=== PATIENT | female | born 1940 | race Caucasian/White ===

== ENCOUNTER 2019-05-15 12:02 | Emergency (ER) | payer OTHER, SELFPAY ==
[2019-05-15 12:10] VITALS: BP 150/78; PULSE 82; RESP 20; TEMP 36.1; O2SAT 100; BMI 23.2
[2019-05-15 12:55] LABS: Add Manual Diff / Slide Review NO; Basophils Absolute Auto 0 /uL (0-100); Basophils Percent Auto 0.7 % (0-2); Eosinophils Absolute Auto 100 /uL (0-450); Eosinophils Percent Auto 1.7 % (2-4); Hematocrit 47.2 % (36-46); Hemoglobin 16.4 g/dL (12.0-16.0); Lymphocytes Absolute Auto 1200 /uL (1100-4500); Lymphocytes Percent Auto 17.8 % (25-40); Mean Corpuscular HGB Conc 34.8 % (30-36); Mean Corpuscular Hemoglobin 33.9 PG (26-34); Mean Corpuscular Volume 97.3 fL (80-100); Monocytes Absolute Auto 600 /uL (0-900); Monocytes Percent Auto 8.1 % (3-14); Neutrophils Absolute Auto 5000 /uL (1500-7000); Neutrophils Percent Auto 71.7 % (50-75); Platelet Count 197 X10^3/uL (150-400); Red Blood Cell Count 4.85 X10^6/uL (4.0-5.2); Red Cell Distribution Width 13.4 % (11.6-14.8)
[2019-05-15 13:00] VITALS: BP 153/89; PULSE 79; RESP 19; O2SAT 99
[2019-05-15 13:03] LABS: Prothrombin Time 11.1 SECONDS (10.1-12.7)
[2019-05-15] MEDS: ONDANSETRON 4 MG/2 ML INJ IV (13:04)
[2019-05-15 13:06] LABS: PTT Partial Thromboplastin Tim 29 SECONDS (26.4-36.2)
[2019-05-15 13:07] LABS: Alanine Aminotransferase 15 IU/L (<35); Albumin 4.4 g/dL (3.5-5.0); Albumin Globulin Ratio 1.5 (1.0-2.8); Alkaline Phosphatase 45 U/L (38-126); Aspartate Aminotransferase 27 IU/L (14-36); Bilirubin Total 1.9 mg/dL (0.2-1.3); Blood Urea Nitrogen 20 mg/dL (7-17); Calcium 9.5 mg/dL (8.4-10.2); Carbon Dioxide 22 mmol/L (22-32); Chloride 103 mmol/L (98-107); Estimated Glomerular Filt Rate > 60.0 mL/min (>60); Glucose 114 mg/dL (80-110); HEMOLYSIS 30 (0-50); Lipase 132 U/L (23-300); Sodium 136 mmol/L (137-145); Total Protein 7.4 g/dL (6.3-8.2)
--- NOTE | 2019-05-15 13:49 | DI.RAD.S_ITS ---
PROCEDURE: XR ACUTE ABDOMEN SERIES INDICATIONS: LLQ pain TECHNIQUE: One view chest and two views of the abdomen were acquired. COMPARISON: None. FINDINGS: Surgical changes and devices: Right upper quadrant cholecystectomy clips Chest: Lungs are clear. Heart size is normal. No pleural effusions. No pneumoperitoneum. Abdomen: Bowel gas pattern is normal. No suspicious calcifications. Visualized solid organ contours appear normal. Bones: No suspicious bony lesions. IMPRESSION: Bowel gas pattern is nonspecific. Several small bowel loops are slightly prominent at the right mid abdomen. No free air found. A source of left lower quadrant pain is not seen. Dictated by: Marco Anderson M.D. on 05/15/2019 at 14:26 Approved by: Marco Anderson M.D. on 05/15/2019 at 14:27
[2019-05-15] MEDS: POTASSIUM CHLORIDE 20 MEQ TAB 40 MEQ PO (13:52)
[2019-05-15 13:55] LABS: Bacteria Urine None Seen; RBC Urine None Seen (0-5/HPF)
[2019-05-15 14:05] LABS: Culture Indicated Urine Cult Not Indicated; Mucus Urine 2+ (Negative); Squamous Epithelial Cell Urine 5-10 /HPF (0-5/HPF); WBC Urine 5-10/HPF (0-5/HPF)
--- NOTE | 2019-05-15 14:16 | ED_ITS ---
HPI - Abdominal Pain <IMELDA Lai - Last Filed: 05/15/19 14:59> General Chief Complaint: Abdominal Pain Stated Complaint: lower abdominal pains Time Seen by Provider: 05/15/19 13:23 Source: patient Mode of arrival: Family Vehicle Limitations: no limitations History of Present Illness HPI narrative: This is a 78-year-old female, prior smoker, who presents to ED with significant other with chief complain of resolved left lower quadrant pain for 7 days after she had taken antibiotic medication for cold symptoms about 2 weeks ago. Patient states she lives in [facility] and had visited [facility] with elevated blood pressure. Patient states her abdominal pain im proved after she was provided with warm pack which she had used unaffected side. Patient was discharged to home with MiraLax, metoprolol or and baby aspirin during this visit which she has not started the medication. 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 Patient reports she is belching, passing gas, had a small bowel movement this morning. Patient was away from a last few days and has not been on her routine schedule with eating and bowel movement. Patient was nauseated but this has been resolved as well after the Zofran given in ED. patient denies fever, chills, diarrhea, urinary symptoms. Related Data Home Medications Medication Instructions Recorded Confirmed aspirin 81 mg PO DAILY 05/15/19 05/15/19 dorzolamide 1 drp OPHTHALMIC (EYE) DIRECTED 05/15/19 05/15/19 fluticasone propionate 1 spray INTRANASAL DIRECTED 05/15/19 05/15/19 ipratropium bromide 1 spray INTRANASAL DIRECTED 05/15/19 05/15/19 latanoprost (PF) 1 drp OPHTHALMIC (EYE) BEDTIME 05/15/19 05/15/19 losartan 25 mg PO DAILY 05/15/19 05/15/19 magnesium 500 mg PO QPM 05/15/19 05/15/19 metoprolol tartrate 25 mg PO BID 05/15/19 05/15/19 mometasone 2 spray INTRANASAL DAILY PRN 05/15/19 05/15/19 omega 8-hns-ews-fish oil 1 cap PO BID 05/15/19 05/15/19 polyethylene glycol 3350 17 g PO DAILY 05/15/19 05/15/19 prasterone (dhea) 25 mg PO DAILY 05/15/19 05/15/19 progesterone micronized 0 % VAGINAL DIRECTED 05/15/19 05/15/19 testosterone propionate 1 applic TOPICAL DIRECTED 05/15/19 05/15/19 Previous Rx's Medication Instructions Recorded ondansetron 4 mg PO Q6-8H PRN #7 tab 05/15/19 Allergies Allergy/AdvReac Type Severity Reaction Status Date / Time doxycycline Allergy Unknown Verified 05/15/19 12:18 meperidine Allergy Unknown Verified 05/15/19 12:18 Review of Systems <IMELDA Lai - Last Filed: 05/15/19 14:59> Review of Systems Narrative: General: Denies fever, chills, fatigue, malaise, sweats. HEENT: Denies sinus pain, ear pain, sore throat, difficulty swallowing, dizziness. Respiratory: Denies dyspnea, cough, wheezing, hemoptysis, sputum. Cardiovascular: Denies chest pain, palpitations, orthopnea, edema. Gastrointestinal: See HPI : Denies dysuria, frequency, incontinence, hematuria, urinary retention. Musculoskeletal: Denies weakness, joint pain or bony pain. Skin: Denies rash, skin lesions, or other. Neurologic: Denies weakness, headache, numbness, change in speech, confusion, seizures, incoordination. Psychiatric: No concerning psychosocial issues. 12-point review of systems is negative except for those stated above. Patient History <IMELDA Lai - Last Filed: 05/15/19 14:59> Surgical History History of appendectomy (Acute) History of bowel resection (Acute) Social History Smoking Status: Former smoker Smoking Status: Former smoker alcohol intake frequency: 0-2 drinks per day Alcohol type: wine Substance Use Type: does not use Exam <IMELDA Lai - Last Filed: 05/15/19 14:59> Narrative Exam Narrative: GEN: Alert, oriented x 3, well appearing and nourished, and in no acute distress. Head: Normal cephalic, atraumatic. No scalp or temporal tenderness, palpable mass or rash. EYES: Pupils are equal, round, and reactive to light and accommodation. Extraocular muscles are intact bilaterally. There is no subconjunctival hemorrhage, exudate and sclera non-icteric. ENT: Bilateral auditory canals and tympanic membranes clear. Hearing grossly intact. Nose without bleeding, purulent discharge or deviation. Facial sinuses nontender to palpate. Mucous membrane moist, no mucosal lesion. Throat without erythema, tonsillar hypertrophy or exudate. Uvula in midline, airway patent. Neck: Trachea in midline. No JVD, non-tender without lymphadenopathy. No masses or thyroid megaly. Supple, non-tender and no meningeal signs. CARDIAC: Normal regular rate and rhythm without murmurs, gallops, or rubs. No chest wall tenderness. No peripheral edema, cyanosis or pallor. Capillary refill is less than 2 seconds. RESPIRATORY: Lungs are clear to auscultate bilaterally. No cough, wheezes, rales, or rhonchi. No stridor, respiratory distress, increase work of breathing, or accessary muscle used. ABD: Abdomen soft, mild tenderness on left lower quadrant and non-distended. No guarding or rebound tenderness to palpate. Bowel sounds are normal in all 4 quadrants. There is no palpable masses or organomegaly. EXT: Full painless ROM of all extremities with no loss of sensation, strength, effusion or edema. SKIN: Warm, dry, normal color for patient. No erythema, lesions or rash over visible areas. BACK: Nontender without deformity or crepitance. No flank tenderness. NEUROLOGICAL: Alert and oriented to place, time and person. Sensation and motor function intact bilaterally. No facial droops, dysphasia. PSYCHIATRIC: Good judgement and reason, without hallucinations, abnormal affect or abnormal behaviors during the examination. Patient is not suicidal. Initial Vital Signs Initial Vital Signs: Vital Signs Temperature 96.9 F L 05/15/19 12:10 Pulse Rate 82 05/15/19 12:10 Respiratory Rate 20 05/15/19 12:10 Blood Pressure 150/78 H 05/15/19 12:10 Pulse Oximetry 100 05/15/19 12:10 <Nicole Jhaveri, DO - Last Filed: 05/16/19 07:15> Initial Vital Signs Initial Vital Signs: Vital Signs Temperature 96.9 F L 05/15/19 12:10 Pulse Rate 82 05/15/19 12:10 Respiratory Rate 20 05/15/19 12:10 Blood Pressure 150/78 H 05/15/19 12:10 Pulse Oximetry 100 05/15/19 12:10 Course <IMELDA Lai - Last Filed: 05/15/19 14:59> Orders Ordered: Discontinued Medications Ondansetron HCl (Zofran) 4 mg IV NOW ONE Stop: 05/15/19 13:01 Last Admin: 05/15/19 13:04 Dose: 4 mg Documented by: MELANI Potassium Chloride (Klor-Con M20) 40 meq PO NOW ONE Stop: 05/15/19 13:50 Last Admin: 05/15/19 13:52 Dose: 40 meq Documented by: MELANI Vital Signs Vital signs: Vital Signs - 8 hr 05/15/19 12:10 05/15/19 13:00 05/15/19 14:30 Temperature 96.9 F L Pulse Rate 82 79 76 Respiratory Rate 20 12 Blood Pressure 150/78 H Blood Pressure [Right Arm] 153/89 H 149/75 H Pulse Oximetry 100 99 98 <Nicole Jhaveri DO - Last Filed: 05/16/19 07:15> Orders Ordered: Discontinued Medications Ondansetron HCl (Zofran) 4 mg IV NOW ONE Stop: 05/15/19 13:01 Last Admin: 05/15/19 13:04 Dose: 4 mg Documented by: MELANI Potassium Chloride (Klor-Con M20) 40 meq PO NOW ONE Stop: 05/15/19 13:50 Last Admin: 05/15/19 13:52 Dose: 40 meq Documented by: MELANI Vital Signs Vital signs: Vital Signs - 8 hr 05/15/19 12:10 05/15/19 13:00 05/15/19 14:30 Temperature 96.9 F L Pulse Rate 82 79 76 Respiratory Rate 20 12 Blood Pressure 150/78 H Blood Pressure [Right Arm] 153/89 H 149/75 H Pulse Oximetry 100 99 98 MDM - Abdominal Pain <IMELDA Lai - Last Filed: 05/15/19 14:59> Differential Diagnosis Differential diagnosis: Likely abdominal pain, small bowel obstruction and other (Diverticulitis) Medical Records Attestation: I reviewed the patient's medical records. Lab Data Attestation: I reviewed the patient's lab results. Result diagrams: 05/15/19 12:36 05/15/19 12:36 Labs: Lab Results 05/15/19 05/15/19 05/15/19 Range/Units 12:36 12:36 12:36 WBC 7.0 (4.5-11.0) X10^3/uL RBC 4.85 (4.0-5.2) X10^6/uL Hgb 16.4 H (12.0-16.0) g/dL Hct 47.2 H (36-46) % MCV 97.3 (80-100) fL MCH 33.9 (26-34) PG MCHC 34.8 (30-36) % RDW 13.4 (11.6-14.8) % Plt Count 197 (150-400) X10^3/uL Neut % (Auto) 71.7 (50-75) % Lymph % (Auto) 17.8 L (25-40) % [place] % (Auto) 8.1 (3-14) % Eos % (Auto) 1.7 L (2-4) % Baso % (Auto) 0.7 (0-2) % Neut # (Auto) 5000 (8304-8415) /uL Lymph # (Auto) 1200 (0557-0697) /uL [place] # (Auto) 600 (0-900) /uL Eos # (Auto) 100 (0-450) /uL Baso # (Auto) 0 (0-100) /uL PT 11.1 (10.1-12.7) SECONDS INR 1.0 (0.9-1.3) APTT 29 (26.4-36.2) SECONDS Sodium 136 L (137-145) mmol/L Potassium 3.0 L (3.4-5.1) mmol/L Chloride 103 (98-107) mmol/L Carbon Dioxide 22 (22-32) mmol/L BUN 20 H (7-17) mg/dL Creatinine 0.80 (0.52-1.04) mg/dL Estimated GFR > 60.0 (>60) mL/min BUN/Creatinine Ratio 25.0 H (6-22) Glucose 114 H (80-110) mg/dL Calcium 9.5 (8.4-10.2) mg/dL Total Bilirubin 1.9 H (0.2-1.3) mg/dL AST 27 (14-36) IU/L ALT 15 (<35) IU/L Alkaline Phosphatase 45 (38-126) U/L Total Protein 7.4 (6.3-8.2) g/dL Albumin 4.4 (3.5-5.0) g/dL Globulin 3.0 (1.7-4.1) g/dL Albumin/Globulin Ratio 1.5 (1.0-2.8) Lipase 132 (23-300) U/L Urine RBC (0-5/HPF) Urine WBC (0-5/HPF) Ur Squamous Epith Cells (0-5/HPF) Urine Bacteria (None) Urine Mucus (Negative) Ur Culture Indicated? 05/15/19 Range/Units 13:40 WBC (4.5-11.0) X10^3/uL RBC (4.0-5.2) X10^6/uL Hgb (12.0-16.0) g/dL Hct (36-46) % MCV (80-100) fL MCH (26-34) PG MCHC (30-36) % RDW (11.6-14.8) % Plt Count (150-400) X10^3/uL Neut % (Auto) (50-75) % Lymph % (Auto) (25-40) % [place] % (Auto) (3-14) % Eos % (Auto) (2-4) % Baso % (Auto) (0-2) % Neut # (Auto) (4230-8440) /uL Lymph # (Auto) (5868-5068) /uL [place] # (Auto) (0-900) /uL Eos # (Auto) (0-450) /uL Baso # (Auto) (0-100) /uL PT (10.1-12.7) SECONDS INR (0.9-1.3) APTT (26.4-36.2) SECONDS Sodium (137-145) mmol/L Potassium (3.4-5.1) mmol/L Chloride (98-107) mmol/L Carbon Dioxide (22-32) mmol/L BUN (7-17) mg/dL Creatinine (0.52-1.04) mg/dL Estimated GFR (>60) mL/min BUN/Creatinine Ratio (6-22) Glucose (80-110) mg/dL Calcium (8.4-10.2) mg/dL Total Bilirubin (0.2-1.3) mg/dL AST (14-36) IU/L ALT (<35) IU/L Alkaline Phosphatase (38-126) U/L Total Protein (6.3-8.2) g/dL Albumin (3.5-5.0) g/dL Globulin (1.7-4.1) g/dL Albumin/Globulin Ratio (1.0-2.8) Lipase (23-300) U/L Urine RBC None seen (0-5/HPF) Urine WBC 5-10/hpf H (0-5/HPF) Ur Squamous Epith Cells 5-10 /hpf H (0-5/HPF) Urine Bacteria None seen (None) Urine Mucus 2+ H (Negative) Ur Culture Indicated? Cult not indicated Point of care testing: Urine Dip Bedside Urine Glucose Negative Bedside Urine Bilirubin + 1 Bedside Urine Ketone + 15 Urine Specific [place] 1.015 Bedside Urine Occult Blood - Negative Bedside Urine pH 6.0 Bedside Urine Protein +/- 15 Bedside Urine Urobilinogen +/- 1mg Bedside Urine Nitrite - Negative Bedside Urine Leukocytes +/- 15 Esterase Imaging Data XR AAS: Radiologist's impression: [address] [id number] XRay Report Signed Patient: Marbella Rowe R#: [id number] : 1Acct:[id number] Age/Sex: 78 / FDate of Service: 05/15/19 Loc: ED Accession Number: [id number] Procedure: XR acute abdomen series Ordering Provider: Jose Diaz PROCEDURE: XR ACUTE ABDOMEN SERIES INDICATIONS: LLQ pain TECHNIQUE: One view chest and two views of the abdomen were acquired. COMPARISON: None. FINDINGS: Surgical changes and devices: Right upper quadrant cholecystectomy clips Chest: Lungs are clear. Heart size is normal. No pleural effusions. No pneumoperitoneum. Abdomen: Bowel gas pattern is normal. No suspicious calcifications. Visualized solid organ contours appear normal. Bones: No suspicious bony lesions. IMPRESSION: Bowel gas pattern is nonspecific. Several small bowel loops are slightly prominent at the right mid abdomen. No free air found. A source of left lower quadrant pain is not seen. Dictated by: Marco Anderson M.D. on 05/15/2019 at 14:26 Approved by: Marco Anderson M.D. on 05/15/2019 at 14:27 [facility] Narrative Medical decision making narrative: This is a 78 year female who presents to ED with resolved intermittent left lower quadrant pain this started about 7 days ago and nausea. Patient had recent antibiotic medication use for cold symptoms 2 weeks ago and patient is associated in her symptoms to this. Patient also states has a history of bowel resection more than 40 years ago and has occasional discomfort on the same site when she has problem with constipation. Patient denies fever, chills, diarrhea. Patient received Zofran IV and was able to tolerate george ramiro without difficulty. Abdominal physical exam was benign with very mild tenderness to palpate in left lower quadrant. Patient declined CT of abdomen and pelvis at this time since she is feeling better. No leukocytosis, patient has been afebrile and her vital signs been stable while in ED. potassium today is 3.0 and this has been replaced with 40 mEq of KCl. Patient advised to hydrate well with small frequent clear liquid. AAS is unremarkable today. Strict return precautions were discussed with the patient and patient verbalized understanding and agrees with the treatment plan. The urine showed small amount of leukocytosis with mucus and no urine bacteria was seen today. <Nicole Jhaveri, DO - Last Filed: 05/16/19 07:15> Lab Data Labs: Lab Results 05/15/19 05/15/19 05/15/19 Range/Units 12:36 12:36 12:36 WBC 7.0 (4.5-11.0) X10^3/uL RBC 4.85 (4.0-5.2) X10^6/uL Hgb 16.4 H (12.0-16.0) g/dL Hct 47.2 H (36-46) % MCV 97.3 (80-100) fL MCH 33.9 (26-34) PG MCHC 34.8 (30-36) % RDW 13.4 (11.6-14.8) % Plt Count 197 (150-400) X10^3/uL Neut % (Auto) 71.7 (50-75) % Lymph % (Auto) 17.8 L (25-40) % [place] % (Auto) 8.1 (3-14) % Eos % (Auto) 1.7 L (2-4) % Baso % (Auto) 0.7 (0-2) % Neut # (Auto) 5000 (6927-3946) /uL Lymph # (Auto) 1200 (8597-2426) /uL [place] # (Auto) 600 (0-900) /uL Eos # (Auto) 100 (0-450) /uL Baso # (Auto) 0 (0-100) /uL PT 11.1 (10.1-12.7) SECONDS INR 1.0 (0.9-1.3) APTT 29 (26.4-36.2) SECONDS Sodium 136 L (137-145) mmol/L Potassium 3.0 L (3.4-5.1) mmol/L Chloride 103 (98-107) mmol/L Carbon Dioxide 22 (22-32) mmol/L BUN 20 H (7-17) mg/dL Creatinine 0.80 (0.52-1.04) mg/dL Estimated GFR > 60.0 (>60) mL/min BUN/Creatinine Ratio 25.0 H (6-22) Glucose 114 H (80-110) mg/dL Calcium 9.5 (8.4-10.2) mg/dL Total Bilirubin 1.9 H (0.2-1.3) mg/dL AST 27 (14-36) IU/L ALT 15 (<35) IU/L Alkaline Phosphatase 45 (38-126) U/L Total Protein 7.4 (6.3-8.2) g/dL Albumin 4.4 (3.5-5.0) g/dL Globulin 3.0 (1.7-4.1) g/dL Albumin/Globulin Ratio 1.5 (1.0-2.8) Lipase 132 (23-300) U/L Urine RBC (0-5/HPF) Urine WBC (0-5/HPF) Ur Squamous Epith Cells (0-5/HPF) Urine Bacteria (None) Urine Mucus (Negative) Ur Culture Indicated? 05/15/19 Range/Units 13:40 WBC (4.5-11.0) X10^3/uL RBC (4.0-5.2) X10^6/uL Hgb (12.0-16.0) g/dL Hct (36-46) % MCV (80-100) fL MCH (26-34) PG MCHC (30-36) % RDW (11.6-14.8) % Plt Count (150-400) X10^3/uL Neut % (Auto) (50-75) % Lymph % (Auto) (25-40) % [place] % (Auto) (3-14) % Eos % (Auto) (2-4) % Baso % (Auto) (0-2) % Neut # (Auto) (9512-5501) /uL Lymph # (Auto) (2937-6311) /uL [place] # (Auto) (0-900) /uL Eos # (Auto) (0-450) /uL Baso # (Auto) (0-100) /uL PT (10.1-12.7) SECONDS INR (0.9-1.3) APTT (26.4-36.2) SECONDS Sodium (137-145) mmol/L Potassium (3.4-5.1) mmol/L Chloride (98-107) mmol/L Carbon Dioxide (22-32) mmol/L BUN (7-17) mg/dL Creatinine (0.52-1.04) mg/dL Estimated GFR (>60) mL/min BUN/Creatinine Ratio (6-22) Glucose (80-110) mg/dL Calcium (8.4-10.2) mg/dL Total Bilirubin (0.2-1.3) mg/dL AST (14-36) IU/L ALT (<35) IU/L Alkaline Phosphatase (38-126) U/L Total Protein (6.3-8.2) g/dL Albumin (3.5-5.0) g/dL Globulin (1.7-4.1) g/dL Albumin/Globulin Ratio (1.0-2.8) Lipase (23-300) U/L Urine RBC None seen (0-5/HPF) Urine WBC 5-10/hpf H (0-5/HPF) Ur Squamous Epith Cells 5-10 /hpf H (0-5/HPF) Urine Bacteria None seen (None) Urine Mucus 2+ H (Negative) Ur Culture Indicated? Cult not indicated Point of care testing: Urine Dip Bedside Urine Glucose Negative Bedside Urine Bilirubin + 1 Bedside Urine Ketone + 15 Urine Specific [place] 1.015 Bedside Urine Occult Blood - Negative Bedside Urine pH 6.0 Bedside Urine Protein +/- 15 Bedside Urine Urobilinogen +/- 1mg Bedside Urine Nitrite - Negative Bedside Urine Leukocytes +/- 15 Esterase ECG Data Attestation: I personally reviewed and interpreted this ECG as follows: Prior ECG tracings: available for review Interpretation: sinus rhythm, rate 75 pr 170 QRS 110 QTC 456. Patient has PVCs no obvious ST elevation. Nonspecific T-wave changes. Discharge Plan Departure Patient Disposition: Home Clinical Impression: Resolved abdominal pain, Nausea Discharge Date/Time: 05/15/19 15:01 Instructions: DI for Abdominal Pain-Adult, DI for Nausea -- Adult Activity Restrictions/Additional Instructions: You have been diagnosed with [resolved left lower quadrant pain and nausea. Your potassium today was mildly decreased and this has been supplemented with 40 mEq of potassium chloride. It appears to be you are mildly dehydrated but other blood tests were unremarkable. Please hydrate frequently with small amount clear liquid. Your x-ray test does not show any acute findings. You have declined CT test today since you are feeling better]. What to do: *Take your medications as directed. You are going home with Zofran ODT for nausea and please use this as needed. *Follow up with your primary care provider in 2-3 days, call for an appointment. Let them know you were seen in the ED and that we asked you to be seen in follow up. *Return to ED if you have any new, worsening, or concerning symptoms, such as [fever, chest pain, breathing difficulty, unable to tolerate fluids, blood in the emesis or stools or any acute concerns]. Prescriptions: New ondansetron 4 mg tablet,disintegrating 4 mg PO Q6-8H PRN (Reason: nausea and vomiting) Qty: 7 RF: 0 No Action losartan 25 mg tablet 25 mg PO DAILY RF: 0 fluticasone propionate 50 mcg/actuation spray,suspension 1 spray INTRANASAL DIRECTED RF: 0 ipratropium bromide 0.03 % spray,non-aerosol 1 spray INTRANASAL DIRECTED RF: 0 dorzolamide 2 % drops 1 drp ophthalmic (eye) DIRECTED RF: 0 latanoprost (PF) 0.005 % drops 1 drp ophthalmic (eye) BEDTIME RF: 0 aspirin 81 mg Tablet,Delayed Release (Dr/Ec) 81 mg PO DAILY RF: 0 mometasone 50 mcg/actuation [place],Non-Aerosol 2 spray INTRANASAL DAILY PRN (Reason: Allergy Symptoms) RF: 0 magnesium 250 mg Tablet 500 mg PO QPM RF: 0 polyethylene glycol 3350 17 gram/dose Powder 17 g PO DAILY RF: 0 metoprolol tartrate 25 mg Tablet 25 mg PO BID RF: 0 prasterone (dhea) 25 mg Tablet 25 mg PO DAILY RF: 0 progesterone micronized 8 % Gel 0 % VAGINAL DIRECTED RF: 0 omega 2-kbu-jyn-fish oil 1 cap PO BID RF: 0 testosterone propionate 2 % cream 1 applic topical DIRECTED RF: 0 Referrals: Dawit Riggs MD [Physician] -
[2019-05-15 14:30] VITALS: BP 149/75; PULSE 76; RESP 12; O2SAT 98
== END 2019-05-15 15:01 | disposition home or self-care (01) ==
PROVIDERS: Emergency Medicine; Emergency Provider Nurse Practitioner Family
DX: R10.32 Left lower quadrant pain (principal); R11.0 Nausea
CPT/HCPCS: 36415; 74022; 80053; 81003; 81015; 83690; 85025; 85610; 85730; 93005; 96374; 99284; 99285; J2405